=== PATIENT | female | born 1965 | race African-American/Black ===

== ENCOUNTER 2021-02-20 11:00 | Outpatient (RCR) | payer MEDICARE, MEDICAID, SELFPAY | END 2021-02-20 23:59 | disposition home or self-care (01) | LOC: ANHAUDIO 11:00 | PROVIDERS: PCP Otolaryngology; Visit Provider Otolaryngology | DX: Z46.1 Encounter for fitting and adjustment of hearing aid (principal) | CPT/HCPCS: 99199; V5221; V5240 ==